=== PATIENT | female | born 1970 | race Caucasian/White ===

== ENCOUNTER 2024-03-26 01:37 | Emergency (ER) | payer BC, SELFPAY ==
--- NOTE | 2024-03-26 02:49 | DOWNTIME ---
There was a [employer] Downtime on 03/26/2024 from 0100 to 03/26/2023 at 0235 . Downtime documentation of patient's care, including medication administrations, has been reconciled in the electronic record per guidelines. Refer to the
patient's paper chart under the miscellaneous tab to see printed paper medication records and downtime forms.
[2024-03-26 03:13] LABS: % Basophils 0.2 % (0-2); % Eosinophils 0.7 % (0-6); % Immature Granulocytes 0.3 % (0-0.5); % Lymphocytes 21.3 % (20.5-51.1); % Monocytes 6.5 % (1.7-9.3); Absolute Eosinophils 0.1 10^3/uL (0-0.7); Absolute Lymphocytes 1.9 10^3/uL (1.2-3.4); Absolute Monocytes 0.6 10^3/uL (0.1-0.6); Absolute Neutrophils 6.3 10^3/uL (1.4-6.5); Hematocrit 42.4 % (37.0-47.0); Hemoglobin 13.8 g/dL (12.0-16.0); Mean Corp Hgb Conc. 32.5 g/dL (33.0-37.0); Mean Corpuscular Hgb 27.1 pg (27.0-31.0); Mean Corpuscular Volume 83.1 fL (81.0-99.0); Mean Platelet Volume 10.7 fL (7.4-10.4); Nucleated Red Blood Cells % 0 %; Platelet Count 266 10^3/uL (130-400); Red Cell Dist. Width 13.2 % (11.5-14.5); Urine Albumin Negative (Neg - Trace); Urine Bilirubin Negative (Negative); Urine Character Clear (Clear); Urine Color Yellow; Urine Glucose Negative (Negative); Urine Ketone 1+ (Negative); Urine Leukocyte Negative (Negative); Urine Nitrite Negative (Negative); Urine Occult Blood Negative (Negative); Urine Urobilinogen Negative (Neg - 1+); White Blood Cell Count 8.8 10^3/uL (4.8-10.8)
[2024-03-26 03:51] LABS: ALT (SGPT) 28 U/L (0-35); AST (SGOT) 31 U/L (14-36); Albumin 4.4 g/dl (3.5-5.0); Alkaline Phosphatase 89 U/L (38-126); Blood Urea Nitrogen 12 mg/dl (7-17); Calcium 9.4 mg/dl (8.4-10.2); Carbon Dioxide 29 mmol/L (22-30); Chloride 103 mmol/L (98-107); Glucose 99 mg/dl (70-99); Lipase 185 U/L (23-300); Sodium 138 mmol/L (135-145); Total Bilirubin 1.9 mg/dl (0.2-1.3); Total Protein 7.4 g/dl (6.3-8.2); eGFR > 60.00
[2024-03-26 04:17] LABS: HCG, Serum Qualitative Screen Negative
[2024-03-26 04:42] VITALS: BP 140/56; BMI 28.1
--- NOTE | 2024-03-26 05:58 | ED.GENMED ---
History of Present Illness
<Kelton Lujan DO - Last Filed: 03/26/24 06:29>
General
Chief Complaint: Abdominal Pain
Source: patient
Exam Limitations: none
Time Seen by Provider: 03/26/24 04:42
Nursing documentation reviewed up to this point in time: agreed with
History of Present Illness
History of Present Illness:
Pleasant 53-year-old female presents to the emergency department with right-sided abdominal pain. She states that the pain began Sunday night and has been waxing and waning since. Patient states that food occasionally exacerbates the pain. Denies
fever, chills, chest pain, or shortness of breath. Patient had a history of anxiety and has been evaluated for gallbladder disease in the past. She states that she has had many tests which were all negative. she reports chronically elevated T.
bili. She has not been diagnosed with Gilbert's disease but states that her son has it.
Phy Exam
<DO Qing Mayo Last Filed: 03/26/24 06:29>
General Physical Exam
General Presentation: well appearing and no apparent distress
General Skin: warm and dry
General Habitus: normal
General Mental: alert
General Hydration: appears well hydrated
ENT Exam
ENT Exam: EOMI, pharynx normal, neck supple and normocephalic
Eye Exam
Eye Exam: PERRL, cornea clear and conjunctiva normal
Cardiovascular Exam
Cardiovascular Exam: regular rate/rhythm, no edema, no murmur and normal peripheral pulses
Pulmonary Exam
Pulmonary Exam: lungs clear, no respiratory distress, no rales, no crackles, no rhonchi, no stridor, no wheezing and no cough
Gastrointestinal Exam
Gastrointestinal Exam: normal bowel sounds, soft, no organomegaly, no pulsatile mass, non distended and no cva tenderness
Palpation: right upper quadrant: Minimal tenderness
Neurological Exam
Neurological Exam: alert, oriented x3, no motor deficits and speech normal
Musculoskeletal Exam
Musculoskeletal Exam: full ROM and no edema
Skin Exam
Skin Exam: normal color, warm/dry, no rash and no petechia
Psychiatric Exam
Psychiatric Exam: normal mood/affect
Course
<Kelton Lujan, DO - Last Filed: 03/26/24 06:29>
Orders/Labs/Results
Orders:
Orders
03/26/24 02:35
Complete Blood Count/With Diff Urgent
Comprehensive Metabolic Panel Urgent
HCG, Serum Qualitative Screen Urgent
Lipase Urgent
Urinalysis Reflex To Culture Urgent
03/26/24 05:31
CT Abd/pel Without Iv Or Oral Urgent
Comment:
Reason For Exam: right sided abdoinal pain
03/26/24 05:57
US Abdomen Limited Urgent
Reason For Exam: ruq abd pain
Abnormal Lab Results
03/26/24
02:35
MCHC 32.5 L g/dL
(33.0-37.0)
MPV 10.7 H fL
(7.4-10.4)
Creatinine 0.5 L mg/dL
(0.6-1.0)
Total Bilirubin 1.9 H mg/dl
(0.2-1.3)
Urine Ketones 1+ A
(Negative)
03/26/24 02:35
03/26/24 02:35
Vital Signs
Initial and Last Documented VS:
Initial Vital Signs
Pulse Resp BP Pulse Ox
84 16 140/56 99
03/26/24 04:42 03/26/24 04:42 03/26/24 04:42 03/26/24 04:42
Last Documented Vital Signs
Pulse Resp BP Pulse Ox
84 16 140/56 99
03/26/24 04:42 03/26/24 04:42 03/26/24 04:42 03/26/24 04:42
<Santosh Bay, DO - Last Filed: 03/26/24 07:33>
Orders/Labs/Results
Orders:
Orders
03/26/24 02:35
Complete Blood Count/With Diff Urgent
Comprehensive Metabolic Panel Urgent
HCG, Serum Qualitative Screen Urgent
Lipase Urgent
Urinalysis Reflex To Culture Urgent
03/26/24 05:31
CT Abd/pel Without Iv Or Oral Urgent
Comment:
Reason For Exam: right sided abdoinal pain
03/26/24 05:57
US Abdomen Limited Urgent
Reason For Exam: ruq abd pain
Abnormal Lab Results
03/26/24
02:35
MCHC 32.5 L g/dL
(33.0-37.0)
MPV 10.7 H fL
(7.4-10.4)
Creatinine 0.5 L mg/dL
(0.6-1.0)
Total Bilirubin 1.9 H mg/dl
(0.2-1.3)
Urine Ketones 1+ A
(Negative)
03/26/24 02:35
03/26/24 02:35
Vital Signs
Initial and Last Documented VS:
Initial Vital Signs
Pulse Resp BP Pulse Ox
84 16 140/56 99
03/26/24 04:42 03/26/24 04:42 03/26/24 04:42 03/26/24 04:42
Last Documented Vital Signs
Pulse Resp BP Pulse Ox
84 16 140/56 99
03/26/24 04:42 03/26/24 04:42 03/26/24 04:42 03/26/24 04:42
<Santosh Bay DO - Last Filed: 03/26/24 07:33>
MDM/Problems Addressed
Differential Diagnosis Includes:
Appendicitis, cholecystitis, pancreatitis
MDM/Problems Addressed:
53-year-old female with right upper quadrant abdominal pain CT abdomen pelvis and ultrasound abdomen showed cholelithiasis without cholecystitis. No signs of pancreatitis or appendicitis. Stable for discharge and follow-up with general surgery.
<Kelton Lujan, DO - Last Filed: 03/26/24 06:29>
*Critical Care Note
Total Time (30-74mins, 75-104mins- exclusive of procedures): Not Applicable
<Santosh Bay, DO - Last Filed: 03/26/24 07:33>
*Radiology
Radiology exam reviewed: radiology read reviewed (US abd: cholelithiasis, no signs cholecystitis, CT abdomen pelvis shows cholelithiasis without cholecystitis)
*Pulse Oximetry
Patient hypoxic: no
*EKG
Interpreted by ED Provider?: NA
*Chronometer Tester Interpretation
Rate: Chronometer Tester- N/A
<Santosh Bay, DO - Last Filed: 03/26/24 07:33>
Patient Management
Social determinants of health affecting care: Living situation and Strong social support
Escalation/DeEscalation of care consider admission/obs:
admit not indicated
ED Attending Note
<Kelton Lujan, DO - Last Filed: 03/26/24 06:29>
-
Portions of this chart may have been created with voice recognition software.� Occasional wrong word or��sound alike� substitutions may have occurred due to the inherent limitations of voice recognition software.
Discharge Plan
Departure
Patient Disposition: Home (Routine Discharge)
Date of Disposition: 03/26/24
Time of Disposition: 07:23
Patient with high blood pressure during this ER visit?: Yes
Discharge Problem:
Abdominal pain
Instructions: Gallstones - Discharge instructions, Abdominal Pain
Referrals:
Moises Monroe MD [Active] - As needed
Erwin Diaz MD [Family Provider] -
Activity Restrictions/Additional Instructions:
It was a pleasure meeting you and taking part in your care. We hope for your continued healing and wellness.
Please read discharge instructions in their entirety. However, they are for general education and may not describe your exact diagnosis at discharge. Information on your ER visit and medical conditions were discussed with you along with appropriate
follow up information...
If indicated, please take your medications as instructed and indicated on discharge paperwork.
Please schedule a follow up appointment as directed. Call to schedule an appointment
Please return to the emergency department with ANY change in, persisting, or worsening of symptoms. If any of your symptoms do not improve, or persist, or become more severe within 6-12 hours, please return to the emergency department for further
care.
Please return to the emergency department if you develop a headache, neck pain/stiffness, fever greater than 100.4F, chest pain, shortness of breath, persistent nausea, vomiting, slurred speech, difficulty walking, numbness/tingling, weakness, signs
of infection or any other symptoms that are worrisome to you.
If you have any questions or concerns please do not hesitate to call the Hospital at or E-mail me directly at [email or web address]
Interventions
Interventions:
*Risk Screen - Suicide Last Done: 03/26/24 04:42
*General Assessment Last Done: 03/26/24 04:42
*Neglect/Abuse Screening Last Done: 03/26/24 04:42
*ED COVID-19 Vaccine History Last Done: 03/26/24 04:42
GX-Vhlxjt-Kcjzcewrpi Assessment Last Done: 03/26/24 04:42
Discharge Date and Time
Print Language: ALBAN[place]
[2024-03-26 07:34] VITALS: BP 149/61
[2024-03-26 08:10] VITALS: BP 149/61
== END 2024-03-26 08:11 | disposition home or self-care (01) ==
LOC: EMR 01:37
PROVIDERS: EMERGENCY PHYSICIAN Student in an Organized Health Care Education/Training Program; FAMILY PHYSICIAN Family Medicine
DX: K80.20 Calculus of gallbladder without cholecystitis without obstruction (principal)
CPT/HCPCS: 99284; 74176; 76705; 80053; 81003; 83690; 84703; 85025